=== PATIENT | male | born 1990 | race Two or more races ===

== ENCOUNTER 2019-06-20 23:35 | Emergency (ER) | payer MEDICAID, OTHER ==
[~2019-06-20] VITALS: Ht 180.3 cm; Wt 103.4 kg
--- NOTE | 2019-06-21 00:01 | NUR ---
PT AAOX4. AMBULATORY. C/O HEADACHE 05/09 SINCE 1500. TOOK TYLENOL 1000MG @ 1600 & 2100 WITHOUT RELIEF. PT VERBALIZED HE HAS STARTED TAKING ANTIBIOTICS X2 DAYS FOR DIRRHEA. PT WAS ABLE TO GRASP HANDS, PUSH, AND PULL. PERRLA. PT PLACED ON MONITOR AND PULSE OX. NO ACUTE DISTRESS NOTED. BREATHING EVEN AND UNLABORED. VSS. WAITING FOR MD FOR EVAL.
[2019-06-21] MEDS ORDERED: SUMATRIPTAN SUCCINATE 6 MG/0.5 ML VIAL SQ ONE ×2 (00:19→00:30)
[2019-06-21] MEDS ORDERED: METOCLOPRAMIDE HCL 10 MG/2 ML VIAL ONE (00:19)
[2019-06-21] MEDS ORDERED: IV NS 0.9% 1,000 ML BAG IV ONE (00:30)
[2019-06-21] MEDS ORDERED: METOCLOPRAMIDE HCL 10 MG/2 ML VIAL IV ONE (00:30)
--- NOTE | 2019-06-21 00:38 | NUR ---
PT KEVEN TO CT
--- NOTE | 2019-06-21 00:43 | NUR ---
Nancy reynolds in ED - 06/21/19 at 0045 by INDUOR PT BROUGHT TO CT
--- NOTE | 2019-06-21 00:44 | NUR ---
PT BROUGHT BACK FROM CT
--- NOTE | 2019-06-21 00:59 | NUR ---
Patient is resting comfortably in bed with eyes closed. Easily aroused.
[2019-06-21] MEDS ORDERED: KETOROLAC TROMETHAMINE INJ 30 MG/ML VIAL ONE (01:28)
[2019-06-21] MEDS ORDERED: CARISOPRODOL 350 MG TABLET ONE (01:29)
[2019-06-21] MEDS ORDERED: KETOROLAC TROMETHAMINE INJ 30 MG/ML VIAL IV ONE (01:30)
[2019-06-21] MEDS ORDERED: CARISOPRODOL 350 MG TABLET PO ONE (01:30)
--- NOTE | 2019-06-21 02:04 | NUR ---
Patient discharged to home in stable condition. Verbal after care instructions given. Patient verbalizes understanding of instruction and RX. IV removed. Catheter intact and site benign. Pressure and 4x4 applied to site. No bleeding noted. PT ambulatory with a steady gait.
[2019-06-21 02:30] VITALS: BP 112/64
== END 2019-06-21 02:10 | disposition home or self-care (01) ==
LOC: ER 23:38
DX: M62.830 Muscle spasm of back (principal); R51 Headache
CPT/HCPCS: 70450; 96372; 96374; 96375; 99284; J1885; J2765; J3030; J7030